=== PATIENT | male | born 1975 | race Caucasian/White ===

== ENCOUNTER 2017-11-28 07:45 | Emergency (ER) | payer SELFPAY ==
[~2017-11-28] VITALS: Ht 175.3 cm; Wt 80.0 kg
[2017-11-28 07:51] VITALS: BP 155/93; PULSE 74; RESP 18; TEMP 98.2; O2SAT 98
--- NOTE | 2017-11-28 08:02 | PD ---
HPI Chief Complaint: Skin Problem Time Seen by Provider: 07:55 Travel History International Travel<30 days: No Contact w/Intl Traveler<30days: No Traveled to known affect area: No History of Present Illness HPI 42-year-old male with no significant medical history that he is aware of, presents emergency department for evaluation of a lump on the anterior aspect of his neck that has been growing over the last 3 months. Patient denies any difficulty swallowing. She denies any difficulty breathing. He states he would like it evaluated because he does not have insurance nor primary care provider. Is not painful unless he pushes hard on it. He has no other symptoms to report. History Past Medical Histgory Medical History: Denies Significant Hx Social History Alcohol Use: Yes Tobacco Use: Yes Review of Systems Except as stated in HPI: all other systems reviewed are Neg Physical Exam Narrative GENERAL: Well-nourished, well-developed male patient in no acute distress SKIN: Focused skin assessment warm/dry. 3 cm in diameter mobile soft tissue mass on the anterior neck. No fluctuation. HEAD: Normocephalic. EYES: No scleral icterus. No injection or drainage. ENT: Mucosa pink and moist. No erythema or exudates. No uvular edema. No uvular , palatal, or tonsillar deviation. Airway patent. Nasal turbinates appear normal without nasal blood, purulent drainage or septal hematoma. NECK: Supple, trachea midline. No JVD or lymphadenopathy. CARDIOVASCULAR: Regular rate and rhythm without murmurs, gallops, or rubs. RESPIRATORY: Breath sounds equal bilaterally. No accessory muscle use. MUSCULOSKELETAL: No cyanosis, or edema. BACK: Nontender without obvious deformity. No CVA tenderness. Data Data Last Documented VS Vital Signs Date Time Temp Pulse Resp B/P (MAP) Pulse Ox O2 Delivery O2 Flow Rate FiO2 11/28/17 07:51 98.2 74 18 155/93 (113) 98 MDM Medical Screen Exam Complete: Yes Emergency Medical Condition: No Differential Diagnosis Goiter versus neoplasm versus lipoma Narrative Course 42-year-old male presents emergency department for evaluation of a mass on his anterior neck that has been increasing in size over the last 3 months. Patient' s airway is patent. He is able to swallow without difficulty. I have provided him with [employer] to follow-up advising him to not wait on his follow-up, but this is an outpatient workup. At this time there are no urgent or emergent needs medical intervention identified. A medical screening exam was performed: At the time of evaluation the presenting medical condition was determined not to be of an emergent nature. The patient was given the option of receiving additional care, but declined. Patient was given options for additional community resources from which to obtain care. The Patient Has Been advised to seek medical attention for their presenting complaint. The patient has been advised to return to the ER at any time if an emergent condition develops. Primary Impression: Encounter for medical screening examination Condition: Ny Bhagat Nov 28, 2017 08:02
== END 2017-11-28 08:16 | disposition left against medical advice (07) ==
LOC: NEPD 07:45
DX: R22.1 Localized swelling, mass and lump, neck (principal)
CPT/HCPCS: 99281